=== PATIENT | female | born 1965 | race Caucasian/White ===

== ENCOUNTER 2025-02-14 02:06 | Observation (INO) ==
[2025-02-14] MEDS: SODIUM CHLORIDE 0.9% 1,000 ML IV ONE (03:40)
[2025-02-14 03:42] LABS: Alanine Aminotransferase 14 U/L (7-52); Albumin Globulin Ratio 2.0 (0.9-2); Albumin Level 4.7 gm/dl (3.4-5.0); Alkaline Phosphatase 64 U/L (34-104); Anion Gap 6 (3-11); Bilirubin,Total 0.4 mg/dl (0.2-1.0); Blood Urea Nitrogen 15 mg/dl (6-23); Calcium 9.5 mg/dl (8.6-10.3); Carbon Dioxide 29 mmol/L (21-32); Chloride 98 mmol/L (98-107); Creatinine Clr Calc Pharmacy 61.5 ml/min; Globulin 2.4 gm/dl (2.5-4.0); Glucose 105 mg/dl (70-99(Fasting)); Lipase 23 U/L (11-82); Magnesium 1.8 mg/dl (1.7-2.4); Potassium 4.0 mmol/L (3.5-5.1); Sodium 133 mmol/L (136-145); Total Protein 7.1 gm/dl (6.0-8.3)
[2025-02-14 03:56] LABS: Thyroid Stimulating Hormone 2.266 uIu/ml (0.300-4.500)
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
--- NOTE | 2025-02-14 04:04 | XRay Report ---
EXAM: XR chest 1V portable CLINICAL HISTORY: Syncope. TECHNIQUE: An X-ray image of the chest is obtained in AP projection. COMPARISON: 12/27/2024, CT lung FINDINGS: Pulmonary Parenchyma: Chest leads are identified Lungs are clear bilaterally. No evidence of consolidation, collapse, or focal opacities. No pulmonary nodules are identified. No evidence of pleural effusion or pleural thickening. Heart and Mediastinum: Heart size and shape are normal. No mediastinal widening or masses. No hilar or mediastinal lymphadenopathy. Bony Thorax: Bony thorax appears intact without fractures or deformities. Soft Tissues: Soft tissues overlying the chest wall are unremarkable. IMPRESSION: 1. No acute cardiopulmonary abnormalities are identified. 2. The previously seen atelectatic bands in the left lung lower zone are not visualized on the current x-ray. 3. Otherwise, no significant interval changes. Electronically signed by Usama Marcus 02-14-2025 04:04 AM
[2025-02-14 04:17] LABS: Hematocrit (blood only) 38.1 % (37.0-47.0); Hemoglobin 12.3 g/dl (12.0-16.0); Immature Granulocytes # (auto) 0.01 K/uL (0.01-0.20); Immature Granulocytes % (auto) 0.2 %; Mean Corpuscular Hemoglobin 28.3 pg (25.0-34.0); Mean Corpuscular Volume 87.8 fL (80.0-100.0); Platelet Count 238 K/uL (130-400); RDW Standard Deviation 40.0 fL (36.4-46.3); Red Blood Count 4.34 M/uL (4.20-5.40); White Blood Count 5.72 K/ul (4.8-10.8)
[2025-02-14 04:28] LABS: Appearance Urine Clear (Clear); Bacteria Urine Automated None Seen (None Seen); Cast Urine Automated 0-2 /lpf (0-2); Epithelial Cell Urine Auto 0-2 /hpf (0-2); Glucose Urine UA Negative (Negative); RBC Urine Automated 0-2 /hpf (0-2); WBC Urine Automated 0-5 /hpf (0-5)
[2025-02-14 04:42] LABS: INR 1.0 (0.9-1.1); Prothrombin Time 10.6 Seconds (9.0-12.0)
--- NOTE | 2025-02-14 05:19 | CT Scan Report ---
EXAM: CT head/brain wo con CLINICAL HISTORY: dizzy. TECHNIQUE: Axial non-contrast CT scan of the brain was performed from the skull base to the high parietal region. One of the following dose reduction techniques was utilized for this exam: automated exposure control, adjustment of the mA and/or kV according to patient size, use of iterative reconstruction. COMPARISON: None. FINDINGS: Brain Parenchyma: Normal attenuation of the cerebral hemispheres, cerebellum, and brainstem. No evidence of acute infarct, hemorrhage, or mass effect. No abnormal areas of hypoattenuation or hyperattenuation. Ventricular System: The ventricles are normal in size and configuration. No evidence of hydrocephalus or ventricular enlargement. Subarachnoid Spaces: Normal sulci and cisterns. No evidence of subarachnoid hemorrhage or extra-axial fluid collections. Cerebellum and Brainstem: No masses, lesions, or areas of abnormal density are identified. Orbits: Normal appearance of the globes, optic nerves, and extraocular muscles. No evidence of orbital masses or abnormal density. Sinuses: The paranasal sinuses are clear. No evidence of sinusitis or mucosal thickening. Mild deviation of the nasal septum towards the left side. Mastoid Air Cells: The mastoid air cells are clear. No evidence of mastoiditis. Skull: Normal skull morphology. IMPRESSION: No evidence of intracranial hemorrhage, gross territorial infarction, or mass effect. In view of the patient's history of dizziness, if clinically required, MRI may be obtained. Electronically signed by Usama Marcus 02-14-2025 05:19 AM
--- NOTE | 2025-02-14 06:10 | History & Physical Report ---
Date of Service February 14, 2025 Assessment & Plan (1) Near syncope: Plan 59-year-old female PMHx anxiety depression, Yang's esophagus,/GERD, and actinic keratoses presenting for syncope type feeling the night of arrival. CBC, PT/INR, Ddimer WNL; CMP Na 133, glucose 105; Trop, TSH WNL; Imaging without acute findings. Continued symptoms despite workup results thus far; admission for further managment. #Near syncope H/o of near syncopal event on multiple occasions at work. Recently started Zepbound. Hemodynamically stable. Suspect ? vasovagal in nature vs resultant of Zepbound. Admission for further workup. - CBC WNL; PT/INR WNL; D-dimer negative; CMP Na 133, glucose 105; magnesium 1.8; troponin WNL; TSH WNL - Phos pending, BMP am - EKG NSR at 65 bpm -- monitor on tele - UA without infection - CXR WNL - Head CT no acute finding - Echo pending - Consider holding Zepbound outpatient as this is the only new medication -- takes on Tuesdays, 2nd dose was 02/09/2025 - Gentle IVF LR @ 80 mL/hr x 1 L - Zofran prn N/V - Acetaminophen prn fever/pain - Orthostatic vitals pending #Hyponatremia Mild, with slightly elevated glucose. - Na 133, glucose 105 - BMP am - IVF as above #Psych- Bupropion - continue #GERD- Esomeprazole - continue Dispo: Obs, med/tele VTE Prophylaxis: SCDs This document was dictated utilizing [employer]. Please excuse any grammatical errors that may be secondary to use of this software. Admission and Anticipated Discharge Date Admission Date: 02/14/2025 History of Present Illness Chief Complaint: Near syncope Primary Care Provider: Chad Christiansen DO 59-year-old female PMHx anxiety depression, Yang's esophagus,/GERD, and actinic keratoses presenting for syncope type feeling the night of arrival. 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 Describes it as a full body breaking out in sweats and feeling as though she would pass out. She states that is difficult to describe the symptoms she is feeling, but states that her vision is slightly different and she feels from the head to her toes and abnormal sensation throughout her body. The episodes are only lasting a few moments in total, and occurring without clear pattern. She has had approximately 6-7 episodes since they started the am of arrival. Patient is not having any chest pain or palpitations. Not short of breath. She has not had a full syncopal episode. Upon entering the room, she is having an episode of diaphoresis with presyncope feeling, taking deep breaths in order to try to feel better. She describes that she will have a thought that she thinks is triggering these episodes, but she is unable to recall what that that is. Did feel nauseous with 2nd and 3rd episodes, but has not since. This lasted approximately 40 seconds in nature. She has taken a total of 2 doses of Zepbound (takes on Saturday) with her most recent dose being 02/09/2025. She did not have the symptoms with the initial dose of Zepbound 2 weeks [employer]. No other new medications. Never had this happen before. Denying chest pain, shortness of breath, palpitations, abdominal pain, vomiting/diarrhea/constipation, numbness/tingling, fever/chills, URI symptoms, LUTS, weakness, or falls. ED evaluation reveals CBC without leukocytosis, stable H&H; PT/INR WNL; D-dimer less than 190; CMP sodium 133, glucose 105, globulin 2.4; troponin <2.3; TSH 2.266; UA negative for infection; CXR no acute findings, previously seen atelectatic bands not visualized; head CT no evidence of intracranial hemorrhage/infarct/mass effect; EKG NSR at 65 bpm.; Provided with 1L NSS in ED. Please see Dr. Yu's attestation for adjustments/additions to treatment plan. Allergies Allergy/AdvReac Type Severity Reaction Status Date / Time No Known Allergies Allergy Verified 02/14/25 02:44 Home Medications Medication Instructions Recorded Confirmed Type multivitamin 1 tab PO DAILY 04/02/24 02/14/25 History bupropion HCl 200 mg tablet,12 hr 200 mg PO BID #180 ea 12/24/24 02/14/25 Rx sustained-release (Wellbutrin SR) esomeprazole magnesium 40 mg 40 mg PO BID 90 days #180 caps 12/24/24 02/14/25 Rx capsule,delayed release inulin 2 gram chewable tablet 2 g PO DAILY 02/14/25 02/14/25 History tirzepatide (weight loss) 2.5 2.5 mg subcut WK 02/14/25 02/14/25 History mg/0.5 mL subcutaneous solution (Zepbound) Past Med/Surg History Problem List (Updated 02/14/25 @ 08:12 by Ronda Sow, DO) Dizziness (Acute) Near syncope (Acute) History of colon polyps Sleep apnea syndrome Anxiety and depression Abnormal weight gain Dietary counseling and surveillance Obesity Nicotine use disorder Medical History Yang esophagus GERD (gastroesophageal reflux disease) Obesity Anxiety and depression Sleep apnea syndrome no device, can't tolerate Surgical History History of colonoscopy 12/22/2024, repeat in 5 years History of esophagogastroduodenoscopy (EGD) History of breast biopsy right - 2018 > benign History of tubal ligation in 1984 or 1985 History of surgery mabel placed in right leg after - 2000 Family History Mother Lung cancer Cancer Denies family history of Ovarian cancer Prostate cancer Myocardial infarction Breast cancer Colorectal cancer Stroke Social History Smoking Status: Former smoker Tobacco Type: Cigarettes Age Started Using Tobacco: 11; Age Quit Using Tobacco: 57; packs per day: 0.25 (1 pack every 3 days); Cigarettes Per Day: smokes 1 pack every 3 days, at age 11, quit and started again 5yrs ago; Second Hand Exposure: No; Do You Dip or Chew Tobacco: No; Hx Alcohol Use: Yes Alcohol type: beer Alcohol Intake Frequency: Monthly or Less Hx Substance Use: No Preferred Language: Egyptian Communication Ability: Effective Visual Impairment: Diminished Hearing Ability: Normal Recreational Specialist Required: No Beliefs That Will Affect Care: None marital status: Single Current Living Situation: Alone current occupational status: employed current occupation: [employer] - [email or web address] How many Children do You have: 2 Other Information That Helps Us Care for You: No Feels Safe at Home: Yes Safety Concerns: Feels Safe At This Time Childhood Exposure to Second-Hand Smoke: No Diet: low carbohydrate caffeine: Yes Dental Care, Regularly: No Physical Activity Frequency: Daily Seatbelt Use: always Sunscreen Use: Yes Assistive Devices: Glasses Review of Systems Review of Systems: All systems reviewed & are unremarkable except as noted in Subjective Physical Exam Physical Exam: General: No acute distress Skin: Warm and dry Head: Normocephalic, atraumatic Eyes: PERRL, conjunctivae clear, sclera non-icteric ENT: External ear and ear canal without swelling; nose atraumatic; good dentition, tongue normal appearance, pharynx normal Neck: Supple, no LAD Cardio: RRR, no M/G/R, S1 and S2 normal Resp: No respiratory distress, Lungs CTA in all lobes bilaterally, no wheezes, rales, or rhonchi Abdomen: Soft, symmetric, nontender; No masses or hepatosplenomegaly; Bowel sounds normoactive MSK: No deformities; pulses palpable and equal; no edema. Neuro: Pt is having episode of diaphoresis and dizziness upon entering the room; Awake, alert; Sensation intact bilaterally; CN grossly intact Psych: Appropriate mood and affect; good judgement and insight. Dr. Yu is present in room at time of visit. Results & Data Results & Data Vital Signs (Past 12 Hours) Vital Signs Temp Pulse Pulse Resp BP BP Pulse Ox 02/14/25 06:00 68 16 117/81 95 02/14/25 04:06 69 16 122/91 93 02/14/25 03:01 63 16 95 02/14/25 02:39 64 16 170/111 H 96 02/14/25 02:16 72 02/14/25 02:09 36.8 C 66 18 168/103 H 100 O2 Del Method 02/14/25 06:00 Room Air 02/14/25 04:06 Room Air 02/14/25 03:01 Room Air 02/14/25 02:39 Room Air 02/14/25 02:16 02/14/25 02:09 Room Air Laboratory Results 02/14/25 02/14/25 02/14/25 03:58 03:42 03:38 WBC 5.72 RBC 4.34 Hgb 12.3 Hct 38.1 MCV 87.8 MCH 28.3 MCHC 32.3 RDW Std Deviation 40.0 RDW Coeff of Gerry 12.4 Plt Count 238 MPV 9.7 Immature Gran % (Auto) 0.2 Neut % (Auto) 67.6 Lymph % (Auto) 22.2 Travis % (Auto) 7.9 Eos % (Auto) 1.6 Baso % (Auto) 0.5 Neut # (Auto) 3.87 Lymph # (Auto) 1.27 Travis # (Auto) 0.45 Eos # (Auto) 0.09 Baso # (Auto) 0.03 Immature Gran # (Auto) 0.01 Absolute Nucleated RBC Nucleated RBC % (auto) Neutrophils % (Manual) Band Neutrophils % Lymphocytes % (Manual) Prolymphocyte % Reactive Lymphs % (Man) Monocytes % (Manual) Eosinophils % (Manual) Basophils % (Manual) Metamyelocytes % (Man) Myelocytes % (Man) Promyelocytes % (Man) Blast Cells % (Manual) Plasma Cell % (Manual) Other Cells % Nucleated RBC % Neutrophils # (Manual) Band Neutrophils # Total Absolute Neuts Lymphocytes # (Manual) Prolymphocyte # Reactive Lymphs # Total Abs Lymphocytes Monocytes # (Manual) Eosinophils # (Manual) Basophils # (Manual) Metamyelocytes # (Man) Myelocytes # (Manual) Promyelocytes # (Man) Blast Cells # (Man) Plasma Cell # (Manual) Other Cells # Nucleated RBCs # (Man) Hypersegmented Neuts Hyposegmented Neuts Hypogranular Neuts Large Granular Lymphs # Lrg Granular Lymphs Hairy Cells Smudge Cells Toxic Granulation Toxic Vacuolation Dohle Bodies Trudy Rods Platelet Estimate Hypogranular Platelets Giant Platelets Platelet Satelliting RBC Morphology Polychromasia Hypochromasia Poikilocytosis Basophilic Stippling Anisocytosis Microcytosis Macrocytosis Spherocytes Pappenheimer Bodies Sickle Cells Target Cells Tear Drop Cells Ovalocytes Stomatocytes Bowser-Wall Bodies Echinocytes Acanthocytes (Spur) Rouleaux RBC Agglutinates Schistocytes Sezary Cell PT 10.6 INR 1.0 D-Dimer < 190 Sodium Potassium Chloride Carbon Dioxide Anion Gap BUN Creatinine Est Cr Clr Drug Dosing eGFR BUN/Creatinine Ratio Glucose Calcium Magnesium Total Bilirubin AST ALT Alkaline Phosphatase Troponin I High Sens Total Protein Albumin Globulin Albumin/Globulin Ratio Lipase TSH Urine Color Dark Yellow Urine Appearance Clear Urine pH 5.5 Ur Specific [place] 1.022 Urine Protein Negative Urine Glucose (UA) Negative Urine Ketones Trace H Urine Blood Negative Urine Nitrite Negative Urine Bilirubin Negative Urine Urobilinogen Negative Ur Leukocyte Esterase Trace H Urine WBC (Auto) 0-5 Urine RBC (Auto) 0-2 U Hyaline Cast (Auto) 0-2 U Epithel Cells (Auto) 0-2 Urine Bacteria (Auto) None Seen Urine Comment Blood Parasites ID 02/14/25 02:33 WBC Cancelled RBC Cancelled Hgb Cancelled Hct Cancelled MCV Cancelled MCH Cancelled MCHC Cancelled RDW Std Deviation Cancelled RDW Coeff of Gerry Cancelled Plt Count Cancelled MPV Cancelled Immature Gran % (Auto) Cancelled Neut % (Auto) Cancelled Lymph % (Auto) Cancelled Travis % (Auto) Cancelled Eos % (Auto) Cancelled Baso % (Auto) Cancelled Neut # (Auto) Cancelled Lymph # (Auto) Cancelled Travis # (Auto) Cancelled Eos # (Auto) Cancelled Baso # (Auto) Cancelled Immature Gran # (Auto) Cancelled Absolute Nucleated RBC Cancelled Nucleated RBC % (auto) Cancelled Neutrophils % (Manual) Cancelled Band Neutrophils % Cancelled Lymphocytes % (Manual) Cancelled Prolymphocyte % Cancelled Reactive Lymphs % (Man) Cancelled Monocytes % (Manual) Cancelled Eosinophils % (Manual) Cancelled Basophils % (Manual) Cancelled Metamyelocytes % (Man) Cancelled Myelocytes % (Man) Cancelled Promyelocytes % (Man) Cancelled Blast Cells % (Manual) Cancelled Plasma Cell % (Manual) Cancelled Other Cells % Cancelled Nucleated RBC % Cancelled Neutrophils # (Manual) Cancelled Band Neutrophils # Cancelled Total Absolute Neuts Cancelled Lymphocytes # (Manual) Cancelled Prolymphocyte # Cancelled Reactive Lymphs # Cancelled Total Abs Lymphocytes Cancelled Monocytes # (Manual) Cancelled Eosinophils # (Manual) Cancelled Basophils # (Manual) Cancelled Metamyelocytes # (Man) Cancelled Myelocytes # (Manual) Cancelled Promyelocytes # (Man) Cancelled Blast Cells # (Man) Cancelled Plasma Cell # (Manual) Cancelled Other Cells # Cancelled Nucleated RBCs # (Man) Cancelled Hypersegmented Neuts Cancelled Hyposegmented Neuts Cancelled Hypogranular Neuts Cancelled Large Granular Lymphs Cancelled # Lrg Granular Lymphs Cancelled Hairy Cells Cancelled Smudge Cells Cancelled Toxic Granulation Cancelled Toxic Vacuolation Cancelled Dohle Bodies Cancelled Trudy Rods Cancelled Platelet Estimate Cancelled Hypogranular Platelets Cancelled Giant Platelets Cancelled Platelet Satelliting Cancelled RBC Morphology Cancelled Polychromasia Cancelled Hypochromasia Cancelled Poikilocytosis Cancelled Basophilic Stippling Cancelled Anisocytosis Cancelled Microcytosis Cancelled Macrocytosis Cancelled Spherocytes Cancelled Pappenheimer Bodies Cancelled Sickle Cells Cancelled Target Cells Cancelled Tear Drop Cells Cancelled Ovalocytes Cancelled Stomatocytes Cancelled Bowser-Wall Bodies Cancelled Echinocytes Cancelled Acanthocytes (Spur) Cancelled Rouleaux Cancelled RBC Agglutinates Cancelled Schistocytes Cancelled Sezary Cell Cancelled PT Cancelled INR Cancelled D-Dimer Cancelled Sodium 133 L Potassium 4.0 Chloride 98 Carbon Dioxide 29 Anion Gap 6 BUN 15 Creatinine 0.90 Est Cr Clr Drug Dosing 61.5 eGFR 73.19 BUN/Creatinine Ratio 16.7 Glucose 105 H Calcium 9.5 Magnesium 1.8 Total Bilirubin 0.4 AST 13 ALT 14 Alkaline Phosphatase 64 Troponin I High Sens < 2.3 Total Protein 7.1 Albumin 4.7 Globulin 2.4 L Albumin/Globulin Ratio 2.0 Lipase 23 TSH 2.266 Urine Color Urine Appearance Urine pH Ur Specific [place] Urine Protein Urine Glucose (UA) Urine Ketones Urine Blood Urine Nitrite Urine Bilirubin Urine Urobilinogen Ur Leukocyte Esterase Urine WBC (Auto) Urine RBC (Auto) U Hyaline Cast (Auto) U Epithel Cells (Auto) Urine Bacteria (Auto) Urine Comment Blood Parasites ID Cancelled Diagnostic Findings Chest X-Ray 02/14/25 03:01 EXAM: XR chest 1V portable CLINICAL HISTORY: Syncope. TECHNIQUE: An X-ray image of the chest is obtained in AP projection. COMPARISON: 12/27/2024, CT lung FINDINGS: Pulmonary Parenchyma: Chest leads are identified Lungs are clear bilaterally. No evidence of consolidation, collapse, or focal opacities. No pulmonary nodules are identified. No evidence of pleural effusion or pleural thickening. Heart and Mediastinum: Heart size and shape are normal. No mediastinal widening or masses. No hilar or mediastinal lymphadenopathy. Bony Thorax: Bony thorax appears intact without fractures or deformities. Soft Tissues: Soft tissues overlying the chest wall are unremarkable. IMPRESSION: 1. No acute cardiopulmonary abnormalities are identified. 2. The previously seen atelectatic bands in the left lung lower zone are not visualized on the current x-ray. 3. Otherwise, no significant interval changes. Electronically signed by Usama Marcus 02-14-2025 04:[address] 02/14/25 04:30 EXAM: CT head/brain wo con CLINICAL HISTORY: dizzy. TECHNIQUE: Axial non-contrast CT scan of the brain was performed from the skull base to the high parietal region. One of the following dose reduction techniques was utilized for this exam: automated exposure control, adjustment of the mA and/or kV according to patient size, use of iterative reconstruction. COMPARISON: None. FINDINGS: Brain Parenchyma: Normal attenuation of the cerebral hemispheres, cerebellum, and brainstem. No evidence of acute infarct, hemorrhage, or mass effect. No abnormal areas of hypoattenuation or hyperattenuation. Ventricular System: The ventricles are normal in size and configuration. No evidence of hydrocephalus or ventricular enlargement. Subarachnoid Spaces: Normal sulci and cisterns. No evidence of subarachnoid hemorrhage or extra-axial fluid collections. Cerebellum and Brainstem: No masses, lesions, or areas of abnormal density are identified. Orbits: Normal appearance of the globes, optic nerves, and extraocular muscles. No evidence of orbital masses or abnormal density. Sinuses: The paranasal sinuses are clear. No evidence of sinusitis or mucosal thickening. Mild deviation of the nasal septum towards the left side. Mastoid Air Cells: The mastoid air cells are clear. No evidence of mastoiditis. Skull: Normal skull morphology. IMPRESSION: No evidence of intracranial hemorrhage, gross territorial infarction, or mass effect. In view of the patient's history of dizziness, if clinically required, MRI may be obtained. Electronically signed by Usama Marcus 02-14-2025 05:19 AM Medications Administered 1L NSS ECG Additional Comments: NSR 65 bpm, [place] 160, QRS 84, QT/QTc 406/422, PRT 60/50/41 Code Status & VTE Plan Code Status Full Supervising Physician Co-Signing Physician Notes Patient seen and examined, chart reviewed, case discussed with KARO Miller and I agree with the assessment and planned as above. Witnessed event in the ER with no change in vitals. Normal sinus persistent on monitor. Blood pressure remained stable. No neurological deficits or seizure activity Events possibly secondary to Zepbound use? Maybe fluctuations in blood sugar? Continue to monitor Check blood sugar during episode if possible Telemetry monitoring Remainder as above PG Care Time/CCT Total # of Minutes Spent Total Time Spent with Patient: Total time spent is greater than 50% in coordination of care (as documented) at patient's floor/unit and/or counseling patient: Coding Level of Care Code 77372 INT INP/OBS CARE MIN Diagnoses Near syncope R55
[2025-02-14] MEDS: LACTATED RINGER'S 1,000 ML IV SCH (08:04)
[2025-02-14] MEDS ORDERED: ONDANSETRON INJ 2 MG/ML 2 ML VIAL IV PRN (08:56)
[2025-02-14] MEDS ORDERED: ACETAMINOPHEN 325 MG TAB PO PRN (08:56)
[2025-02-14] MEDS ORDERED: POLYETHYLENE (MIRALAX) 17 GM PACK PO PRN (08:56)
--- NOTE | 2025-02-14 11:45 | XCELERA ---
[id number]
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
[2025-02-14] MEDS: MECLIZINE HCL 25 MG TAB PO SCH (15:42)
--- NOTE | 2025-02-14 20:23 | Ultrasound Report ---
Carotid Doppler ultrasound Technique: Grayscale and color Doppler ultrasound images of the carotid arteries bilaterally. No comparison Findings: No significant atherosclerotic plaque identified on this exam. Peak systolic velocity within the right common carotid artery is 67 cm/s. Peak systolic velocity within the right internal carotid artery is 69 cm/s ICA to CCA ratio is 1.6 Peak systolic velocity within the left common carotid artery 72 cm/s. Peak systolic velocity within the left ICA is 60 cm/s. ICA to CCA ratio is 0. 8 3. Both vertebral arteries are identified and patentWith normal antegrade flow. Impression: No hemodynamically significant stenosis. Electronically signed by Wenceslao Winters 02-14-2025 8:22 PM
[2025-02-15 06:48] LABS: Anion Gap 6.0 (3-11); Blood Urea Nitrogen 11.0 mg/dl (6-23); Calcium 8.4 mg/dl (8.6-10.3); Carbon Dioxide 26.0 mmol/L (21-32); Chloride 111.0 mmol/L (98-107); Creatinine Clr Calc Pharmacy 72.8 ml/min; Glucose 105.0 mg/dl (70-99(Fasting)); Potassium 3.8 mmol/L (3.5-5.1); Sodium 143.0 mmol/L (136-145)
[2025-02-15 14:01] VITALS: PULSE 70; RESP 18; TEMP 98.2; O2SAT 95
--- NOTE | 2025-02-15 14:52 | Electrocardiogram Report ---
Test Reason : Blood Pressure : */* mmHG Vent. Rate : 65 BPM Atrial Rate : 65 BPM P-R Int : 160 ms QRS Dur : 84 ms QT Int : 406 ms P-R-T Axes : 60 50 41 degrees QTcB Int : 422 ms Normal sinus rhythm Normal ECG No previous ECGs available Confirmed by Mike Mccord ([id number]) on 02/15/2025 2:51:32 PM Referred By: REFERRED SELF Confirmed By: Mike Mccord
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
[2025-02-15 16:50] VITALS: BP 156/83
== END 2025-02-15 17:51 | disposition home or self-care (01) ==
LOC: SUATTDRO → ED 02:06 → 2N 02:06 → SUATTDRO 06:32 → 2N 08:16